=== PATIENT | male | born 1970 | race Caucasian/White ===

== ENCOUNTER 2018-08-26 10:03 | Emergency (ER) | payer MEDICARE, OTHER ==
[2018-08-26] MEDS ORDERED: Aspirin 81 MG Tab.Chew PO ONE (10:27)
[2018-08-26] MEDS ORDERED: Nitroglycerin 2% Oint 1 GM UD Packet TOP ONE (10:27)
[2018-08-26] MEDS ORDERED: Sodium Chloride 0.9% 10 ML Syringe FLUSH PRN (10:27)
--- NOTE | 2018-08-26 10:58 | EDM.PDOC ---
ED HPI GENERAL MEDICAL PROBLEM - General Chief Complaint: Chest Pain Stated Complaint: CHEST PAIN Time Seen by Provider: 08/26/18 10:18 Source of Information: Reports: Patient, RN Notes Reviewed - History of Present Illness INITIAL COMMENTS - FREE TEXT/NARRATIVE: 48-year-old male comes in with left anterior chest tightness. Started about one hour ago when at the vet with his dog. He has had this occasionally in the past but usually it would go away more quickly. This now been present for about an hour with slight radiation to his back but not into the arm. He is not short of breath. He has had diarrhea for about the past 5 days but no major abdominal pain or cramping at this time. No nausea or vomiting. He does not have history of hypertension, diabetes or known coronary artery disease. He does have history of hyperlipidemia and states he also has "bipolar disorder". Due to his current job he states he has had to stop taking one or 2 of his bipolar meds. He does not smoke regular cigarettes but he does "vape". Left Chest Pain Score (Numeric/FACES): 5 - Related Data Allergies Allergy/AdvReac Type Severity Reaction Status Date / Time No Known Allergies Allergy Verified 08/26/18 10:14 Home Meds: Home Meds Gabapentin [Neurontin] 600 mg PO TID 08/26/18 [History] Levothyroxine [Levothroid] 137 mcg PO DAILY 08/26/18 [History] Meloxicam 15 mg PO DAILY 08/26/18 [History] Omeprazole 40 mg PO BID 08/26/18 [History] Orphenadrine [Norflex] 100 mg PO BID PRN 08/26/18 [History] Prazosin HCl [Prazosin] 5 mg PO BEDTIME 08/26/18 [History] Simvastatin [Zocor] 40 mg PO BEDTIME 08/26/18 [History] Sucralfate 1 gm PO QID 08/26/18 [History] Vortioxetine Hydrobromide [Trintellix] 20 mg PO DAILY 08/26/18 [History] busPIRone [Buspar] 15 mg PO TID 08/26/18 [History] hydrOXYzine HCl [hydrOXYzine] 150 mg PO BEDTIME 08/26/18 [History] Past Medical History Cardiovascular History: Reports: High Cholesterol Gastrointestinal History: Reports: GERD Musculoskeletal History: Reports: Back Pain, Chronic Psychiatric History: Reports: Addiction, Anxiety, Bipolar, Depression Endocrine/Metabolic History: Reports: Hypothyroidism - Infectious Disease History Infectious Disease History: Reports: Shingles Social & Family History - Tobacco Use Smoking Status *Q: Current Every Day Smoker Years of Tobacco use: 30 Packs/Tins Daily: 0.5 - Caffeine Use Caffeine Use: Reports: Coffee - Recreational Drug Use Recreational Drug Use: No ED ROS GENERAL - Review of Systems Review Of Systems: See Below Constitutional: Denies: Fever, Chills HEENT: Reports: No Symptoms Respiratory: Denies: Shortness of Breath, Pleuritic Chest Pain, Cough Cardiovascular: Reports: Chest Pain GI/Abdominal: Denies: Abdominal Pain, Nausea, Vomiting Musculoskeletal: Reports: Back Pain. Denies: Neck Pain, Shoulder Pain, Arm Pain , Leg Pain Skin: Reports: No Symptoms Neurological: Reports: Numbness (He states he has mild numbness of both hands that also has started in the past hour). Denies: Trouble Speaking, Difficulty Walking, Weakness ED EXAM, GENERAL - Physical Exam Exam: See Below General Appearance: Alert, Anxious Eye Exam: Bilateral Eye: PERRL Throat/Mouth: Normal Inspection Head: Atraumatic. No: Facial Swelling Neck: Supple Respiratory/Chest: No Respiratory Distress, Lungs Clear, Chest Non-Tender Cardiovascular: Regular Rate, Rhythm GI/Abdominal: Soft, Non-Tender Back Exam: No: CVA Tenderness (L), CVA Tenderness (R) Neurological: Alert, Oriented, No Motor/Sensory Deficits Skin Exam: Warm, Dry, Normal Color EKG INTERPRETATION EKG Date: 08/26/[address]: Normal P-Wave: Present QRS: Normal ST-T: Normal Course - Vital Signs Last Recorded V/S: Last Vital Signs Temp 96.8 F 08/26/18 13:25 Pulse 52 L 08/26/18 13:25 Resp 17 08/26/18 13:25 BP 122/75 08/26/18 13:25 Pulse Ox 97 08/26/18 13:25 - Orders/Labs/Meds Orders: Active Orders 24 hr Category Date Time Status EKG 12 Lead [EKG Documentation Completion] [RC] STAT Care 08/26/18 10:26 Active Peripheral IV Care [RC] . DIRECTED Care 08/26/18 10:27 Active Sodium Chloride 0.9% [Saline Flush] Med 08/26/18 10:27 Active 10 ml FLUSH ASDIRECTED PRN Peripheral IV Insertion Adult [OM.PC] Stat Oth 08/26/18 10:27 Ordered Medication Orders Sodium Chloride (Saline Flush) 10 ml FLUSH ASDIRECTED PRN PRN Reason: Keep Vein Open Last Admin: 08/26/18 10:35 Dose: 10 ml Labs: Laboratory Tests 08/26/18 08/26/18 08/26/18 Range/Units 10:25 10:25 12:14 WBC 6.30 (4.23-9.07) K/mm3 RBC 5.34 (4.63-6.08) M/mm3 Hgb 14.9 (13.7-17.5) gm/L Hct 45.3 (40.1-51.0) % MCV 84.8 (79.0-92.2) fl MCH 27.9 (25.7-32.2) pg MCHC 32.9 (32.2-35.5) g/dl RDW Std Deviation 40.2 (35.1-43.9) fL Plt Count 176 (163-337) K/mm3 MPV 11.0 (9.4-12.3) fl Neut % (Auto) 55.3 (34.0-67.9) % Lymph % (Auto) 34.8 (21.8-53.1) % [place] % (Auto) 7.6 (5.3-12.2) % Eos % (Auto) 1.9 (0.8-7.0) Baso % (Auto) 0.2 (0.1-1.2) % Neut # (Auto) 3.49 (1.78-5.38) K/mm3 Lymph # (Auto) 2.19 (1.32-3.57) K/mm3 [place] # (Auto) 0.48 (0.30-0.82) K/mm3 Eos # (Auto) 0.12 (0.04-0.54) K/mm3 Baso # (Auto) 0.01 (0.01-0.08) K/mm3 Sodium 142 (136-145) mEq/L Potassium 4.0 (3.5-5.1) mEq/L Chloride 107 (98-107) mEq/L Carbon Dioxide 24 (21-32) mEq/L Anion Gap 15.0 (5-15) BUN 16 (7-18) mg/dL Creatinine 1.1 (0.7-1.3) mg/dL Est Cr Clr Drug Dosing 94.45 mL/min Estimated GFR (MDRD) > 60 (>60) mL/min BUN/Creatinine Ratio 14.5 (14-18) Glucose 104 (74-106) mg/dL Calcium 8.9 (8.5-10.1) mg/dL Total Bilirubin 0.4 (0.2-1.0) mg/dL AST 20 (15-37) U/L ALT 31 (16-63) U/L Alkaline Phosphatase 89 (46-116) U/L Troponin I < 0.017 < 0.017 (0.00-0.056) ng/mL Total Protein 6.7 (6.4-8.2) g/dl Albumin 3.7 (3.4-5.0) g/dl Globulin 3.0 gm/dL Albumin/Globulin Ratio 1.2 (1-2) Meds: Medications Generic Name Dose Route Start Last Admin Trade Name Freq PRN Reason Stop Dose Admin Sodium Chloride 10 ml 08/26/18 10:27 08/26/18 10:35 Saline Flush FLUSH 10 ml ASDIRECTED PRN Administration Keep Vein Open Discontinued Medications Generic Name Dose Route Start Last Admin Trade Name Freq PRN Reason Stop Dose Admin Aspirin 324 mg 08/26/18 10:27 08/26/18 10:32 Aspirin PO 08/26/18 10:28 324 mg ONETIME ONE Administration Nitroglycerin 1 gm 08/26/18 10:27 08/26/18 10:33 Nitro-Bid 2% TOP 08/26/18 10:28 1 gm ONETIME ONE Administration Departure - Departure Time of Disposition: 12:56 Disposition: Home, Self-Care 01 Condition: Fair Clinical Impression: Atypical chest pain Instructions: Nonspecific Chest Pain, [id number] Referrals: Christopher Chang PA [Primary Care Provider] - Forms: ED Department Discharge Additional Instructions: Your heart and lungs of checked out very well today, also there is no sign of stroke or other severe acute neurologic abnormality. Alternate ice and heat to area of discomfort left chest as needed, you may take Tylenol or ibuprofen as needed. Plan to follow-up clinic with [facility] or one of the other providers next week for recheck if symptoms not resolving as expected - My Orders Last 24 Hours: My Active Orders 08/26/18 10:26 EKG 12 Lead [EKG Documentation Completion] [RC] STAT 08/26/18 10:27 Peripheral IV Care [RC] . DIRECTED Sodium Chloride 0.9% [Saline Flush] 10 ml FLUSH ASDIRECTED PRN Peripheral IV Insertion Adult [OM.PC] Stat - Assessment/Plan Last 24 Hours: My Active Orders 08/26/18 10:26 EKG 12 Lead [EKG Documentation Completion] [RC] STAT 08/26/18 10:27 Peripheral IV Care [RC] . DIRECTED Sodium Chloride 0.9% [Saline Flush] 10 ml FLUSH ASDIRECTED PRN Peripheral IV Insertion Adult [OM.PC] Stat
--- NOTE | 2018-08-26 11:14 | CR ---
Chest: Portable view of the chest was obtained. Comparison: No prior chest imaging. Heart size and mediastinum are within normal limits for portable technique. Lungs are clear with no acute parenchymal change. Bony structures are grossly intact. Impression: 1. Nothing acute is seen on portable chest x-ray. Diagnostic code #1
== END 2018-08-26 13:25 | disposition home or self-care (01) ==
LOC: JD.ED 10:03
DX: R07.89 Other chest pain (principal); E78.00 Pure hypercholesterolemia, unspecified; K21.9 Gastro-esophageal reflux disease without esophagitis; F17.210 Nicotine dependence, cigarettes, uncomplicated; Z79.899 Other long term (current) drug therapy
CPT/HCPCS: 36415; 71045; 80053; 84484; 85025; 93005; 99285; A9270